=== PATIENT | male | born 1960 | race Caucasian/White ===

== ENCOUNTER 2018-01-02 07:20 | Day surgery (SDC) | payer MEDICARE, MEDICAID ==
--- NOTE | 2018-01-02 07:16 | History and Physical - [facility] ---
CHIEF COMPLAINT/HISTORY OF CHIEF COMPLAINT: This patient presents for a permanent implantation of spinal cord stimulator. A successful trial was performed by Dr. Chapman resulted in his referral to this facility for the permanent implant. Documentation has been provided showing the level of the leads. He understands the potential risks, side effects and complications. PAST MEDICAL HISTORY: Hypertension and peripheral edema. PAST SURGICAL HISTORY: Lower extremity surgery and upper extremity surgery. EMPLOYMENT STATUS: Works. MEDICATIONS ON ADMISSION: List to be provided. ALLERGIES: SULFA. FAMILY/PSYCHOSOCIAL HISTORY: Social history - Smoking. Family history - Coronary artery disease, hypertension, and cancer. SYSTEMS REVIEW: The patient is appropriate in no acute distress. The remainder of the systems review is positive for glasses and dentures. PHYSICAL EXAMINATION: Height is 5'8". Weight is 230. No vital signs. HEENT: Within normal limits. LUNGS: Clear. HEART: Regular rate and rhythm. ABDOMEN: Nontender. MUSCULOSKELETAL: Examination of the musculoskeletal system shows diffuse tenderness across the lumbar spine and extending into the extremities. Lower extremity functionality shows no obvious motor or sensory field abnormalities. No assistive device used for ambulation. NEUROLOGIC: Cranial nerves are intact. IMPRESSION: LUMBAR RADICULOPATHY, ICD-10 CODE M54.16 AND M54.17. PLAN: The patient is here for implantation of a permanent spinal cord stimulator manufactured by [employer]. The procedure will be considered outpatient although an overnight stay will be evaluated because of the distance required for driving. All of the risks, side effects and complications have been reviewed not only through myself but also through the clinical specialist from the [facility]. JOB NUMBER: [id number] MTDD
[~2018-01-02 07:20] MED LIST: ACETAMINOPHEN 1,000 MG/100 ML BTL IV ONE; CEFAZOLIN 2 Gram 2 GM/50 ML BAG IVPB ONE; FAMOTIDINE 20MG TABLET PO ONE; MECLIZINE 25 MG TABLET PO ONE; METOCLOPRAMIDE 10 MG TABLET PO ONE
[2018-01-02] MEDS ORDERED: MORPHINE SULFATE 5 MG/ML PFS IVP ONE (07:21)
[2018-01-02] MEDS ORDERED: BUPIVACAINE 0.5% W/EPI MPF 30 ML VIAL IVP ONE (07:21)
[2018-01-02] MEDS ORDERED: FENTANYL PF 100MCG/2ML VIAL IV ONE (07:21)
[2018-01-02] MEDS ORDERED: PROPOFOL 10 MG/ML VIAL IV ONE (07:21)
[2018-01-02] MEDS ORDERED: LIDOCAINE 2% MDV (20MG/ML) 20ML VIAL IV ONE (07:21)
[2018-01-02] MEDS ORDERED: MIDAZOLAM HCL 2MG/2ML VIAL IV ONE (07:21)
[2018-01-02] MEDS ORDERED: LIDOCAINE 1% W/EPI 1:200,000 MPF 30ML SQ ONE (07:21)
[2018-01-02] MEDS ORDERED: ACETAMINOPHEN 325 MG TAB PO PRN ×2 (12:21)
[2018-01-02] MEDS ORDERED: TEMAZEPAM 15 MG CAPSULE PO PRN ×2 (12:21)
[2018-01-02] MEDS ORDERED: METOCLOPRAMIDE 10 MG TABLET PO PRN (12:21)
[2018-01-02] MEDS ORDERED: DIPHENHYDRAMINE HCL 50 MG/ML VIAL IVP PRN ×2 (12:21)
[2018-01-02] MEDS ORDERED: SENNOSIDES/DOCUSATE SODIUM UD CAPSULE PO PRN ×2 (12:21)
[2018-01-02] MEDS ORDERED: HYDROCODONE/APAP 7.5/325MG TABLET PO PRN (12:21)
[2018-01-02] MEDS ORDERED: METOCLOPRAMIDE HCL 10 MG/2 ML VIAL IVP PRN (12:21)
[2018-01-02] MEDS ORDERED: HYDROMORPHONE HCL 2 MG/ML VIAL IM PRN ×2 (12:21)
[2018-01-02] MEDS ORDERED: AL HYDROX/MAG HYDROX 30ML UD PO PRN (12:21)
[2018-01-02] MEDS ORDERED: DIPHENHYDRAMINE HCL 25 MG CAPSULE PO PRN ×2 (12:21)
[2018-01-02] MEDS ORDERED: OXYCODONE/APAP 10MG-325MG TABLET PO PRN ×2 (12:21)
[2018-01-02] MEDS ORDERED: PATIENT OWN MED: PROAIR HFA INH PRN (12:37)
[2018-01-02] MEDS: PATIENT OWN MED: GABAPENTIN 300 MG PO SCH ×2 (14:01→20:09)
[2018-01-02] MEDS: HYDROCODONE/APAP 7.5/325MG TABLET PO PRN ×2 (16:34→20:15)
[2018-01-02] MEDS: CEFAZOLIN 2 Gram 2 GM/50 ML BAG IVPB SCH (17:25)
[2018-01-02] MEDS ORDERED: PATIENT OWN MED: AMLODIPINE 10 MG PO SCH (20:00)
[2018-01-02] MEDS: HYDRALAZINE 50 MG PO SCH (20:08)
[2018-01-02] MEDS: CARBAMAZEPINE 200 MG PO SCH (20:08)
[2018-01-02] MEDS ORDERED: 0.9 % SODIUM CHLORIDE 10ML SYR IVP SCH (22:00)
[2018-01-03] MEDS: HYDROCODONE/APAP 7.5/325MG TABLET PO PRN ×2 (01:29→09:22)
[2018-01-03] MEDS: CEFAZOLIN 2 Gram 2 GM/50 ML BAG IVPB SCH ×3 (01:30→09:01)
[2018-01-03] MEDS ORDERED: POTASSIUM 10 MEQ PO SCH (08:00)
[2018-01-03] MEDS ORDERED: PATIENT OWN MED: FLUOXETINE 20 MG PO SCH (08:00)
[2018-01-03] MEDS ORDERED: PATIENT OWN MED: EZETIMIBE 10 MG PO SCH (08:00)
[2018-01-03] MEDS ORDERED: FENOFIBRATE 135 MG PO SCH (08:00)
[2018-01-03] MEDS ORDERED: PATIENT OWN MED: LOSARTAN 100 MG PO SCH (08:00)
[2018-01-03] MEDS ORDERED: PATIENT OWN MED: PANTOPRAZOLE 40 MG PO SCH (08:00)
[2018-01-03] MEDS ORDERED: NAMENDA 28 MG PO SCH (08:00)
[2018-01-03] MEDS: PATIENT OWN MED: GABAPENTIN 300 MG PO SCH (08:10)
[2018-01-03] MEDS: CARBAMAZEPINE 200 MG PO SCH (08:10)
[2018-01-03] MEDS: HYDRALAZINE 50 MG PO SCH (08:11)
--- NOTE | 2018-01-05 11:52 | Operative Note ---
DATE OF SURGERY: 01/02/18 PREOPERATIVE DIAGNOSIS: INTRACTABLE LUMBAR RADICULOPATHY, ICD-10 CODE = M54.16 AND M54.17. OPERATION: 1. FLUOROSCOPICALLY-GUIDED EPIDURAL ACCESS LEFT T12/L1, PLACEMENT OF SPINAL STIMULATOR LEAD 1, A NEVRO OCTAPOLAR 8 ELECTRODE LEAD ADVANCED TO UPPER ENDPLATE T8 LEFT OF THE MIDLINE. 2. FLUOROSCOPICALLY-GUIDED EPIDURAL ACCESS LEFT T11/12, PLACEMENT OF SPINAL STIMULATOR LEAD 2, A NEVRO OCTAPOLAR 8 ELECTRODE ADVANCED RIGHT OF THE MIDLINE UPPER ELECTRODE T9. 3. INCISION, SUBCUTANEOUS DISSECTION, AND ANCHORING OF LEAD 1 AND LEAD 2 TO SUPRASPINOUS FASCIA USING A NEVRO LOCKING ANCHOR. 4. INCISION, SUBCUTANEOUS DISSECTION, AND CREATION OF SUBCUTANEOUS POUCH AT RIGHT POSTERIOR GLUTEAL MARGIN FOR PLACEMENT OF GENERATOR IDENTIFIED A NEVRO PROGRAMMABLE RECHARGEABLE. 5. TUNNELING BETWEEN LEAD POUCH AND GENERATOR POUCH. PLACEMENT OF EXTERNAL PORTION OF LEAD 1 AND LEAD 2 INTO GENERATOR POUCH EACH LEAD INTERFACED TO THE GENERATOR. 6. CLOSURE OF INCISION STRATAFIX SUTURE 2-0 FASCIA, 3-0 RUNNING SUBCUTICULAR. DERMABOND CLOSURE OF BOTH INCISIONS. SURGEON: EPHRAIM FAUST D.O. ANESTHESIA: LOCAL SEDATION. ANESTHESIA PROVIDER: AMRIK BANDA CRNA INDICATION: This patient presents with a history of an intractable lumbar radiculopathy. A spinal cord stimulator trial by Dr. Chapman resulted in 75 plus percent pain control. Due to the failure of all therapies and the success of the trial, he has been referred to us at this facility for implantation. DESCRIPTION OF PROCEDURE: Intravenous line, vital sign monitoring, IV sedation by Anesthesia, Amrik Banda. Patient position prone. Sterile prep, sterile technique. Left of the midline, the epidural interspace at 02/25 and 03/16 were marked, infiltrated. Curved access Epimed needles with [id number]. At , spinal cord stimulator, lead 1, a Nevro Octapolar 8 electrode lead advanced left of midline upper electrode T8. With the access at 02/25, same technique, spinal cord stimulator lead 2, a Nevro Octapolar 8 electrode advanced right of the midline positioned upper electrode T9. Skin infiltrated above and below the needles. Incision made and subcutaneous dissection was conducted to the supraspinous fascia. Each lead was then anchored to the supraspinous fascia with a Nevro Locking Prosperity. At the right posterior gluteal margin below the belt line; site picked by the patient, skin infiltrated, incision made, and subcutaneous dissection was used to form a pouch of suitable size and depth for the generator identified as a Nevro Programmable Rechargeable. A tunneling tool was then used to carry the two leads into the generator pouch and each lead was interfaced with the generator. Antibiotic irrigation and Bovie for hemostasis. The generator was then placed into the pouch, the leads were placed into their own pouch,and the incisions were closed using STRATAFIX suture 2-0 for fascia, 3 -0 for skin. A Dermabond closure was then used to approximate the edges of both wounds. He was transported to the Recovery Room stable. No side-effects from the procedure or the sedation. He will be kept overnight for observation and the system will be activated in the morning. cc: Dr. Jassi Coleman JOB NUMBER: [id number] MTDD
--- NOTE | 2018-01-05 13:53 | RADIOLOGY REPORT ---
EXAM: THORACIC SPINE HISTORY: PAIN PUMP PLACEMENT. TECHNIQUE: A single AP view of the thoracic spine was performed. FINDINGS: Pain stimulator tips are at the T8 level. IMPRESSION: THE STIMULATOR LEAD TIPS ARE AT THE T8 LEVEL. JOB NUMBER: [id number] MTDD
== END 2018-01-03 10:00 ==
LOC: SUR 07:20 → MEDSURG 11:46 → SUR 01-03 10:00
PROVIDERS: ATTEND Pain Medicine Interventional Pain Medicine
DX: M54.16 Radiculopathy, lumbar region (principal); M54.17 Radiculopathy, lumbosacral region; I10 Essential (primary) hypertension; J44.9 Chronic obstructive pulmonary disease, unspecified; E78.00 Pure hypercholesterolemia, unspecified; F17.210 Nicotine dependence, cigarettes, uncomplicated
CPT/HCPCS: 63650; 63685; 01936; 85002; 72020; J3010; J0690 ×2; J2270; C1778; C1787; C1820